=== PATIENT | female | born 1965 | race Caucasian/White ===

== ENCOUNTER 2023-12-27 16:19 | Emergency (ER) | payer OTHER ==
[~2023-12-27] VITALS: Ht 165.1 cm; Wt 96.2 kg
[2023-12-27] MEDS ORDERED: PANTOPRAZOLE 40 MG VIAL ONE (17:12)
[2023-12-27] MEDS ORDERED: ONDANSETRON HCL/PF 4 MG/2 ML VIAL ONE (17:12)
[2023-12-27] MEDS: ONDANSETRON HCL/PF 4 MG/2 ML VIAL IVP ONE (17:16)
[2023-12-27] MEDS: PANTOPRAZOLE 40 MG VIAL IV ONE (17:16)
[2023-12-27 17:17] LABS: BASOPHILS # (AUTO) 0.1 K/uL (0.0-0.2); EOSINOPHILS # (AUTO) 0.1 K/uL (0.0-0.7); EOSINOPHILS % (AUTO) 0.9 % (0.0-6.0); HEMATOCRIT 43 % (33-45); HEMOGLOBIN 14.5 g/dL (11.5-14.8); LYMPHOCYTES # (AUTO) 2.1 K/uL (0.8-4.8); LYMPHOCYTES % (AUTO) 36.1 % (20.0-44.0); MEAN CORPUSCULAR HEMOGLOBIN 29 PG (26.0-33.0); MEAN CORPUSCULAR HGB CONC 34 g/dl (31.0-36.0); MEAN CORPUSCULAR VOLUME 85 fL (82-100); MONOCYTES # (AUTO) 0.5 K/uL (0.1-1.30); MONOCYTES % (AUTO) 8.3 % (2.0-12.0); NEUTROPHILS # (AUTO) 3.1 K/uL (1.8-8.9); NEUTROPHILS % (AUTO) 53.7 % (43.0-81.0); PLATELET COUNT (AUTO) 275 K/uL (150-450); RED BLOOD CELL COUNT(AUTO) 4.98 MIL/uL (4.0-5.2); RED CELL DISTRIBUTION WIDTH 13.9 % (11.5-15.0); WHITE BLOOD COUNT (AUTO) 5.7 K/uL (4.3-11.0)
[2023-12-27 17:28] LABS: CALCIUM, SERUM 9.6 mg/dL (8.5-10.1); CARBON DIOXIDE 32 mmol/L (21-32); CHLORIDE 102 mmol/L (98-107); GLUCOSE 124 mg/dL (74-106); POTASSIUM 3.4 mmol/L (3.5-5.1); SODIUM SERUM 140 mmol/L (136-145); UREA NITROGEN, BLOOD 13 mg/dL (7-18)
[2023-12-27 17:40] LABS: ALBUMIN 4.2 g/dL (3.4-5.0); BILIRUBIN,DIRECT 0.2 mg/dL (0.0-0.2); BILIRUBIN,TOTAL 1.3 mg/dL (0.2-1.0); TOTAL PROTEIN, SERUM 8.1 g/dL (6.4-8.2)
[2023-12-27 18:25] VITALS: TEMP 98
[2023-12-27 19:48] VITALS: BP 137/65; O2SAT 99
== END 2023-12-27 22:26 | disposition short-term general hospital (02) ==
LOC: ER 16:42
DX: R10.13 Epigastric pain (principal); R79.89 Other specified abnormal findings of blood chemistry; I10 Essential (primary) hypertension; J45.909 Unspecified asthma, uncomplicated; Z88.2 Allergy status to sulfonamides; Z88.1 Allergy status to other antibiotic agents; Z91.040 Latex allergy status
CPT/HCPCS: 99285; 96374; 76705; 71045; 96375; 93005 ×3; 85025; 80048; 83690; 80076; 36415; 84484 ×3; J2405; J2470